=== PATIENT | male | born 1960 | race Caucasian/White ===

== ENCOUNTER 2016-08-11 11:59 | Inpatient (IN) | payer MEDICARE, MEDICAID ==
[~2016-08-11] VITALS: Ht 170.2 cm; Wt 49.9 kg
[2016-08-11 12:10] VITALS: BP 117/80
[2016-08-11] MEDS ORDERED: Morphine Sulfate 4mg/ml Inj IM ONE (12:15)
[2016-08-11] MEDS ORDERED: Tubing IV Cassette IV ONE ×2 (12:54→13:57)
[2016-08-11 13:23] LABS: MEAN CORPUSCULAR HEMOGLOBIN 26.5 PG (27.0-31.0); MEAN CORPUSCULAR HGB CONC 31.5 G/DL (32.0-36.0); MEAN CORPUSCULAR VOLUME 84 FL (80-99); MEAN PLATELET VOLUME 5.4 FL (6.5-10.1); PLATELET COUNT 309 K/UL (150-450); RED BLOOD COUNT 3.91 M/UL (4.70-6.10); RED CELL DISTRIBUTION WIDTH 24.8 % (11.6-14.8)
[2016-08-11] MEDS ORDERED: UNOBMED (13:34)
[2016-08-11] MEDS ORDERED: Cefepime HCl 1 GM in NS 55 ML IV ONE (13:45)
[2016-08-11] MEDS ORDERED: Solu-MEDROL 125mg Inj IVP ONE (13:45)
[2016-08-11] MEDS ORDERED: Trimethoprim/Sulfamethoxazole 15 ML in D5W 500ml 550 ML IVPB ONE (13:45)
[2016-08-11] MEDS ORDERED: Azithromycin 500 MG in NS 275 ML IV ONE (13:45)
[2016-08-11 13:47] LABS: ANISOCYTOSIS 4+; BAND NEUTROPHILS % (MANUAL) 3 % (0-8); BASOPHILS % (MANUAL) 0 % (0-2); EOSINOPHILS % (MANUAL) 0 % (0-3); HYPOCHROMASIA 1+; LYMPHOCYTES % (MANUAL) 6 % (20-45); NEUTROPHILS % (MANUAL) 88 % (45-75); PLATELET ESTIMATE ADEQUATE; PLATELET MORPHOLOGY NORMAL; TOTAL CELLS COUNTED 100
[2016-08-11 13:51] LABS: TROPONIN I < 0.30 ng/mL (<=0.30)
[2016-08-11 13:54] LABS: ALANINE AMINOTRANSFERASE 10 U/L (3-41); ALBUMIN/GLOBULIN RATIO 0.7 (1.0-2.7); ANION GAP 22 (5-15); ASPARTATE AMINO TRANSFERASE 15 U/L (5-40); CALCIUM 9.2 mg/dL (8.6-10.2); CARBON DIOXIDE 22 mEQ/L (20-30); CHLORIDE 109 mEQ/L (98-107); GLOMERULAR FILTRATION RATE > 60 mL/min (>60); HEMOLYSIS 11; POTASSIUM 3.2 mEQ/L (3.4-4.9); SODIUM 153 mEQ/L (135-145)
[2016-08-11] MEDS ORDERED: Azithromycin Inj IV ONE (13:56)
[2016-08-11] MEDS ORDERED: NS 55 ML IV ONE (13:57)
[2016-08-11] MEDS ORDERED: Tubing IV Secondary IV ONE (13:57)
[2016-08-11] MEDS ORDERED: Cefepime 1gm vial ONE (13:57)
[2016-08-11] MEDS ORDERED: NS 275 ML ONE (13:57)
[2016-08-11 14:04] LABS: CKMB 3.7 ng/mL (< 6.7)
--- NOTE | 2016-08-11 14:12 | Emergency Room Report ---
History of Present Illness General Chief Complaint: General Complaint Source: Patient, EMS Present Illness HPI 55-year-old male presents ED complaining of back pain and vomiting. Patient is homeless, fell from his wheelchair and witnesses called 911. Patient is here complaining of back pain and hip pain. Pain is a 9/10, sharp, nonradiating. Patient is also short of breath, oxygen saturations in the 80s on room air. Patient has history of HIV. Patient is not currently taking any medications. Denies any fevers or chills. Denies chest pain. No other aggravating or relieving factors. Denies any other associated symptoms Allergies: Coded Allergies: FISH CONTAINING PRODUCTS (Unverified Allergy, Unknown, 07/10/14) Patient History Past Medical History: HIV Past Surgical History: none Pertinent Family History: none Social History: Denies: alcohol use, drug use, smoking Immunizations: UTD Reviewed Nursing Documentation: PMH: Agreed, PSxH: Agreed Nursing Documentation-PMH Past Medical History: No History, Except For Hx Cardiac Problems: No - AIDS Hx Hypertension: Yes Hx Cancer: No - HIV Review of Systems All Other Systems: negative except mentioned in HPI Physical Exam Vital Signs Date Time Temp Pulse Resp B/P Pulse Ox O2 Delivery O2 Flow Rate FiO2 08/11/16 11:52 97.3 101 20 116/84 88 Room Air Sp02 EP Interpretation: reviewed, normal General Appearance: no apparent distress, alert, GCS 15, non-toxic, cachetic, thin Head: normocephalic Eyes: bilateral eye PERRL, bilateral eye normal inspection ENT: normal ENT inspection Neck: normal inspection Respiratory: accessory muscle use, crackles Cardiovascular #1: regular rate, rhythm, no edema Gastrointestinal: normal bowel sounds, non tender, soft, non-distended, no guarding, no rebound Rectal: deferred Genitourinary: no CVA tenderness, vertebral tenderness Musculoskeletal: other - LLE AKA Neurologic: alert, oriented x3, responsive, motor strength/tone normal, sensory intact, speech normal Psychiatric: normal inspection Skin: normal inspection Lymphatic: normal inspection Medical Decision Making Diagnostic Impression: Primary Impression: Dehydration Additional Impressions: Hypernatremia PCP (pneumocystis carinii pneumonia) Qualified Codes: B59 - Pneumocystosis ER Course Hospital Course 55-year-old M presenting to ED with respiratory distress, cough and crackles. Complaining of back pain and hip pain status post fall. History of HIV Differential diagnoses include: Pneumonia, CHF exacerbation, pneumothorax, fluid overload Clinical course Patient placed on stretcher. On threat monitoring analyst with hypoxia on room air and tachycardia. Patient placed on nonrebreather. After initial history and physical, I ordered labs, IV fluids, EKG, chest x-ray, blood cultures, UA, ABG. Labs -no luekocytosis, hemoglobin/hematocrit stable, Na 153, K 3.2, lactate ok, trop negative CXR - bilateral reticular disease/infiltrate ? PCP CT L-spine and CT pelvis showed no acute fractures identified Antibiotics given. IV Bactrim given. Case discussed with Dr. Rizvi and he agreed to the patient to his service for further care and support I feel this is a highly complex case requiring extensive working including EKG/ Rhythm strip, Xray/CT/US, Blood/urine lab work, repeat exams while in ED, and administration of strong opiates/narcotics for pain control, admission to hospital or close patient follow up. Diagnosis - dehydration, hypernatremia, PCP pneumonia Patient admitted to telemetry in serious condition Labs Test 08/11/16 12:35 White Blood Count 8.0 K/UL (4.8-10.8) Red Blood Count 3.91 M/UL (4.70-6.10) Hemoglobin 10.3 G/DL (14.2-18.0) Hematocrit 32.8 % (42.0-52.0) Mean Corpuscular Volume 84 FL (80-99) Mean Corpuscular Hemoglobin 26.5 PG (27.0-31.0) Mean Corpuscular Hemoglobin Concent 31.5 G/DL (32.0-36.0) Red Cell Distribution Width 24.8 % (11.6-14.8) Platelet Count 309 K/UL (150-450) Mean Platelet Volume 5.4 FL (6.5-10.1) Neutrophils (%) (Auto) % (45.0-75.0) Lymphocytes (%) (Auto) % (20.0-45.0) Monocytes (%) (Auto) % (1.0-10.0) Eosinophils (%) (Auto) % (0.0-3.0) Basophils (%) (Auto) % (0.0-2.0) Differential Total Cells Counted 100 Neutrophils % (Manual) 88 % (45-75) Lymphocytes % (Manual) 6 % (20-45) Monocytes % (Manual) 3 % (1-10) Eosinophils % (Manual) 0 % (0-3) Basophils % (Manual) 0 % (0-2) Band Neutrophils 3 % (0-8) Platelet Estimate Adequate Platelet Morphology Normal Hypochromasia 1+ Anisocytosis 4+ Sodium Level 153 mEQ/L (135-145) Potassium Level 3.2 mEQ/L (3.4-4.9) Chloride Level 109 mEQ/L (98-107) Carbon Dioxide Level 22 mEQ/L (20-30) Anion Gap 22 (5-15) Blood Urea Nitrogen 25 mg/dL (7-23) Creatinine 1.0 mg/dL (0.7-1.2) Estimat Glomerular Filtration Rate > 60 mL/min (>60) Glucose Level 74 mg/dL (74-106) Lactic Acid Level 1.20 mmol/L (0.66-2.22) Calcium Level 9.2 mg/dL (8.6-10.2) Total Bilirubin 0.2 mg/dL (0.0-1.2) Aspartate Amino Transf (AST/SGOT) 15 U/L (5-40) Alanine Aminotransferase (ALT/SGPT) 10 U/L (3-41) Alkaline Phosphatase 85 U/L (40-129) Total Creatine Kinase 62 U/L (38-174) Creatine Kinase MB 3.7 ng/mL (< 6.7) Creatine Kinase MB Relative Index 5.9 Troponin I < 0.30 ng/mL (<=0.30) Pro-B-Type Natriuretic Peptide 840 pg/mL (0-125) Total Protein 7.0 g/dL (6.6-8.7) Albumin 3.0 g/dL (3.5-5.2) Globulin 4.0 g/dL Albumin/Globulin Ratio 0.7 (1.0-2.7) EKG Diagnostic Results Rate: normal Rhythm: NSR ST Segments: no acute changes ASA given to the pt in ED: No Rhythm Strip Diag. Results EP Interpretation: yes Rhythm: NSR, no PVC's, no ectopy Chest X-Ray Diagnostic Results EP Interpretation: Yes Findings: no pneumothorax, no acute cardiopulmonary disease, other - bilateral interstitial/reticular infiltrates Number of Views: 1 CT/MRI/US Diagnostic Results CT/MRI/US Diagnostic Results : Imaging Test Ordered: CT L spine, CT Pelvis Impression CT L spine- ? compression of superior endplate L1, cannot rule out compression fx CT Pelvis - no acute process Last Vital Signs Date Time Temp Pulse Resp B/P Pulse Ox O2 Delivery O2 Flow Rate FiO2 08/11/16 12:10 100 40 117/80 65 Room Air 08/11/16 11:52 97.3 Status: improved Disposition: ADMITTED INPATIENT Condition: Serious Referrals: NOT CHOSEN [facility]/,REFERRING (PCP) PHILLIP AZUL M.D. Aug 11, 2016 14:12
[2016-08-11 14:13] LABS: ABG ALLEN TEST POSITIVE; ABG BASE EXCESS 0.1; ABG PCO2 43.4 mmHg (35.0-45.0)
[2016-08-11] MEDS ORDERED: Morphine Sulfate 4mg/ml Inj IVP ONE (14:15)
--- NOTE | 2016-08-11 14:45 | Diagnostic Imaging Report ---
Indications: Left lower back pain status post falling out of wheelchair today Technique: Spiral acquisitions obtained through the lumbar spine. Multiplanar reconstructions were generated. No IV contrast utilized. Total dose length product 251 mGycm. CTDIvol(s) 9 mGy Comparison: None Findings: There is focal compression of the central anterior superior endplate of L1. Unclear whether this represents a focal compression injury or a large intravertebral endplate disc herniation. The remaining vertebral body heights are preserved. No acute fractures otherwise. There is bilateral L5 spondylolysis and resultant grade 1 L5 on S1 spondylolisthesis as well associated secondary disc degeneration. At L4-5, there is mild circumferential annular bulge. This does not significantly impinge upon the spinal canal or neural foramina. Or graft at L5-S1, the alignment abnormality results in mild compromise of the bilateral neural foramina, but no significant compromise of the spinal canal. The surrounding soft tissues demonstrate the presence of bowel contrast within the colon. There is possibly cholelithiasis. Impression: Focal compression of the anterior central superior endplate of L1, most likely a large focal intravertebral disc herniation (so-called "Schmorl's node"), but mild compression fracture injury of the superior endplate, completely ruled out. Consider MRI if there is high clinical suspicion No acute process otherwise Bilateral L5 spondylolysis, resultant grade 1 L5 on S1 spondylolisthesis and secondary disc degeneration Evidence of recent oral contrast ingestion Suspect cholelithiasis The CT scanner at [facility] is accredited by the [employer] and the scans are performed using protocols designed to limit radiation exposure to as low as reasonably achievable to attain images of sufficient resolution adequate for diagnostic evaluation.
--- NOTE | 2016-08-11 14:49 | Diagnostic Imaging Report ---
Indication: Lower back pain, status post falling out of wheelchair today Technique: Noncontrast spiral acquisitions obtained through the pelvis. Multiplanar reconstructions generated. Total dose length product 240 mGycm. CTDIvol(s) 8 mGy Comparison: None Findings: No evidence of acute fracture. No dislocations. Joint spaces are preserved. There is degenerative disc narrowing at L5-S1, as well as bilateral L5 spondylolysis, also described on lumbar spine CT. The included soft tissues are remarkable for the presence of enteric contrast within the colon. The bladder is somewhat distended. Impression: No acute process. Findings as noted The CT scanner at [facility] is accredited by the [employer] and the scans are performed using protocols designed to limit radiation exposure to as low as reasonably achievable to attain images of sufficient resolution adequate for diagnostic evaluation.
[2016-08-11 15:34] VITALS: BP 102/76
[2016-08-11 15:56] LABS: APPEARANCE,URINE SLIGHTLY CLOUDY; KETONES,URINE 4+ (NEGATIVE); LEUKOCYTE ESTERASE ,URINE 1+ (NEGATIVE); NITRITE,URINE NEGATIVE (NEGATIVE); PH,URINE 5 (4.5-8.0); PROTEIN,URINE 2+ (NEGATIVE); UROBILINOGEN,URINE 1 MG/DL (0.0-1.0)
[2016-08-11 16:18] LABS: BACTERIA,URINE MODERATE /HPF
[2016-08-11 16:19] LABS: MUCUS,URINE FEW /LPF (NONE/OCC); YEAST,URINE FEW /HPF
[2016-08-11 16:34] LABS: ICTOTEST NEGATIVE
[2016-08-11 17:36] VITALS: BP 97/79
[2016-08-11] MEDS ORDERED: Miralax 17gm pkt ORAL PRN (17:45)
[2016-08-11] MEDS ORDERED: DuoNeb 0.5-3(2.5)mg/3ml neb HHN PRN (17:45)
[2016-08-11] MEDS ORDERED: Promethazine/Codeine 5ml UD ORAL PRN (17:45)
[2016-08-11] MEDS ORDERED: Mylanta II UD 30ml ORAL PRN (17:45)
[2016-08-11] MEDS ORDERED: Nitroglycerin Subl 0.4mg tab (Bottle Of 25) SL PRN (17:45)
--- NOTE | 2016-08-11 18:32 | Diagnostic Imaging Report ---
Indication: SOB Technique: One view of the chest Comparison: 07/08/2014 Findings: There is extensive mixed interstitial and alveolar disease, extensively throughout the left lung and especially in the mid and lower lung, less extensive in the right upper and lower lungs. This is markedly increased from the previous study. There is blunting of the left costophrenic sulcus, not definitely evident previously the heart size is normal. Lungs are slightly hyperinflated. Impression: Diffuse bilateral left. The right interstitial and alveolar disease. Uncertain as to whether this represents acute probable disease, versus progressive chronic interstitial disease. High-resolution chest CT may be useful for better characterization if clinically indicated. Mild hyperinflation, may indicate COPD changes
[2016-08-11 20:00] VITALS: BP 108/73
[2016-08-11] MEDS: Hydromorphone 0.5mg/0.5ml inj IVP PRN (20:21)
[2016-08-11] MEDS: Heparin 5000 units/ml inj SUBQ SCH (21:26)
[2016-08-11] MEDS: Cefepime HCl 1 GM in D5W 55 ML IV SCH (21:31)
[2016-08-11] MEDS: Haloperidol 5mg/ml Inj IM PRN (23:57)
[2016-08-12 00:20] VITALS: BP 116/78
[2016-08-12] MEDS: Haloperidol 5mg/ml Inj IM PRN (04:05)
[2016-08-12 04:20] VITALS: BP 109/67
[2016-08-12] MEDS ORDERED: Haloperidol 5mg/ml Inj IM PRN ×2 (07:30)
[2016-08-12 08:06] VITALS: BP 118/56
[2016-08-12] MEDS: Hydromorphone 0.5mg/0.5ml inj IVP PRN (08:10)
[2016-08-12 08:24] LABS: MEAN CORPUSCULAR HEMOGLOBIN 26.8 PG (27.0-31.0); MEAN CORPUSCULAR HGB CONC 31.8 G/DL (32.0-36.0); MEAN CORPUSCULAR VOLUME 84 FL (80-99); MEAN PLATELET VOLUME 5.4 FL (6.5-10.1); PLATELET COUNT 233 K/UL (150-450); RED BLOOD COUNT 3.57 M/UL (4.70-6.10); RED CELL DISTRIBUTION WIDTH 26.1 % (11.6-14.8); WHITE BLOOD COUNT 9.2 K/UL (4.8-10.8)
[2016-08-12 08:43] LABS: ANION GAP 17 (5-15); CALCIUM 8.8 mg/dL (8.6-10.2); CARBON DIOXIDE 20 mEQ/L (20-30); CHLORIDE 96 mEQ/L (98-107); CREATININE 0.8 mg/dL (0.7-1.2); GLOMERULAR FILTRATION RATE > 60 mL/min (>60); HEMOLYSIS 11; PHOSPHORUS 1.9 mg/dL (2.5-4.8); POTASSIUM 3.7 mEQ/L (3.4-4.9); SODIUM 133 mEQ/L (135-145)
[2016-08-12] MEDS: Cefepime HCl 1 GM in D5W 55 ML IV SCH (08:43)
[2016-08-12] MEDS: Heparin 5000 units/ml inj SUBQ SCH (08:43)
[2016-08-12 10:13] LABS: BAND NEUTROPHILS % (MANUAL) 0 % (0-8); BASOPHILS % (MANUAL) 0 % (0-2); EOSINOPHILS % (MANUAL) 0 % (0-3); LYMPHOCYTES % (MANUAL) 4 % (20-45); NEUTROPHILS % (MANUAL) 94 % (45-75); PLATELET ESTIMATE ADEQUATE; PLATELET MORPHOLOGY NORMAL; TOTAL CELLS COUNTED 100
[2016-08-12 10:14] LABS: ANISOCYTOSIS 3+
[2016-08-12 10:15] LABS: HYPOCHROMASIA 1+
--- NOTE | 2016-08-13 16:07 | Cardiology Report ---
APPROVED REPORT EKG Measurement Heart [id number] [place] [id number] Normal sinus rhythm Right atrial enlargement Borderline ECG
--- NOTE | 2016-08-14 11:24 | Discharge Summary ---
Discharge Summary Hospital Course Date of Admission Aug 11, 2016 at 12:36 Date of Discharge Aug 12, 2016 at 08:58 Admitting Diagnosis ,dyspnea,pneumonia,pcp HPI Silvino Montgomery is a 55 year old male who was admitted on Aug 11, 2016 at 12:36 for DYSPNEA, PNEUMONIA, Pneumocystis pneumonia Hospital Course [id number] Discharge Discharge Disposition Patient left AMA Discharge Diagnoses: Madeline Petty NP Aug 14, 2016 11:24
--- NOTE | 2016-08-14 19:28 | Discharge Summary 2 SIG ---
DATE OF ADMISSION: 08/11/2016 DATE OF DISCHARGE: 08/12/2016 BRIEF HOSPITAL COURSE: The patient is a 55-year-old male, who presented to ED complaining of back pain and vomiting. He is homeless, fell from wheelchair and witnesses called 911. On evaluation at ED, labs showed no leukocytosis. Hemoglobin and hematocrit was stable. Troponin was negative. Chest x-ray showed bilateral infiltrates. He was admitted for further care and support and went to telemetry unit. On the floor, he was agitated. He was provided a sitter for patient safety and was witnessed to induce vomiting by sticking his hand to his throat. He was yelling, cursing, and combative and left against medical advice. FINAL DIAGNOSES: 1. Dehydration. 2. Hyperlipidemia. 3. Possible PCP pneumonia. 4. Noncompliance as the patient signed out against medical advice. Joanne Rizvi M.D. I have been assigned to dictate discharge summary on this account and I was not involved in the patient's management. Madeline Petty N.P DR: JEFFRY JOB#: [id number] CC: NICOLE
--- NOTE | 2016-08-22 12:15 | History & Physical ---
History and Physical History & Physicial Patient was admitted to telemetry but signed out against medical advise before being seen Madeline Petty NP Aug 22, 2016 12:15
== END 2016-08-12 08:58 | disposition left against medical advice (07) | DRG 894 ==
LOC: EDBD 11:59 → EMR 12:23 → 2E 12:36 → EDBEDREQ 13:41 → 2E 08-12 08:27
DX: J18.9 Pneumonia, unspecified organism (principal); B20 Human immunodeficiency virus [HIV] disease; E78.5 Hyperlipidemia, unspecified; E86.0 Dehydration; Z91.19 Patient's noncompliance with other medical treatment and regimen; Z59.0 Homelessness; M54.9 Dorsalgia, unspecified; M25.559 Pain in unspecified hip; Z91.81 History of falling
CPT/HCPCS: 36415; 36600; 71010; 72131; 72192; 80053; 80069; 81003; 82164; 82550; 82553; 82803; 83605; 83880; 84484; 85007; 85025; 86710; 87040; 87081; 87086; 93005; 94664; J2405

== ENCOUNTER 2016-08-12 09:33 | Emergency (ER) | payer MEDICARE, MEDICAID ==
[~2016-08-12] VITALS: Ht 160 cm; Wt 49.9 kg
[~2016-08-12 09:33] MED LIST: UNOBMED
[2016-08-12 10:06] VITALS: BP 134/97
[2016-08-12] MEDS ORDERED: HYDROmorphone 1mg/ml Carpuject IM ONE (10:45)
[2016-08-12 12:39] VITALS: BP 134/97
--- NOTE | 2016-08-12 13:58 | Emergency Room Report ---
History of Present Illness General Chief Complaint: Abdominal Pain Source: Patient, Medical Record Present Illness HPI [id number] presents with "vomiting". Patient was in ED yesterday, admitted to floor. Per hospitalist Dr Rizvi, patient combative on floor, disrupting floor operations, not allowing RNs to do their assessments, making repeated demands for Dilaudid. Patient was given Haldol this morning per the EMR, then signed out AMA. Bystander saw patient on the street allegedly and brought to ER. Patient not answering specific HPI questions, stating "give me dilaudid" only. He is spitting out his food, not vomiting. Also observed sticking finger down throat to make himself vomit. Allergies: Coded Allergies: FISH CONTAINING PRODUCTS (Unverified Allergy, Unknown, 07/10/14) Patient History Past Medical History: HIV Past Surgical History: unable to obtain Pertinent Family History: unable to obtain Immunizations: UTD Reviewed Nursing Documentation: PMH: Agreed, PSxH: Agreed Nursing Documentation-PMH Past Medical History: No History, Except For Hx Cardiac Problems: No Hx Hypertension: Yes Hx Cancer: No Hx Gastrointestinal Problems: Yes Hx Neurological Problems: Yes Review of Systems All Other Systems: limited - Patient not cooperative Physical Exam Vital Signs Date Time Temp Pulse Resp B/P Pulse Ox O2 Delivery O2 Flow Rate FiO2 08/12/16 10:06 97.5 89 14 134/97 97 Room Air Sp02 EP Interpretation: reviewed, normal General Appearance: normal inspection, well appearing, no apparent distress, alert, GCS 15, non-toxic, other - Spitting up his food Head: normocephalic, atraumatic Eyes: bilateral eye EOMI, bilateral eye PERRL ENT: normal ENT inspection, hearing grossly normal, normal voice Neck: normal inspection, full range of motion, supple, no bony tend Respiratory: normal inspection, lungs clear, normal breath sounds, no respiratory distress, no retraction, no wheezing Cardiovascular #1: regular rate, rhythm, no edema Gastrointestinal: normal inspection, normal bowel sounds, non tender, soft, no guarding, no hernia Genitourinary: no CVA tenderness Musculoskeletal: normal inspection, back normal, normal range of motion, Cleopatra' s Sign negative Neurologic: normal inspection, alert, oriented x3, responsive, 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 Multiple visits for chronic pain. Likely malingering for narcotics. Making himself vomit. Was given IM dose of dilaudid Observed sleeping in stretcher Feels better Was DCed Last Vital Signs Date Time Temp Pulse Resp B/P Pulse Ox O2 Delivery O2 Flow Rate FiO2 08/12/16 12:39 97.5 89 14 134/97 97 Room Air Status: improved Disposition: HOME, SELF-CARE Condition: Improved Referrals: NOT CHOSEN IPA/MD,REFERRING (PCP) Patient Instructions: Chronic Pain Additional Instructions: - Follow up with your doctor in 2-3 days TIMOTHY OROURKE M.D. Aug 12, 2016 13:58
== END 2016-08-12 13:13 | disposition left against medical advice (07) ==
LOC: EMR 10:55
DX: G89.4 Chronic pain syndrome (principal); I10 Essential (primary) hypertension; Z91.013 Allergy to seafood
CPT/HCPCS: 96372; 99283; J1170